=== PATIENT | female | born 1955 | race Caucasian/White ===

== ENCOUNTER 2016-11-01 08:31 | Day surgery (SDC) | payer BC ==
[~2016-11-01 08:31] MED LIST: CALCIUM PO; CEFT2 PO; DIL2TAB PO; ESTRACE VAG0.1 MG/GM V; FISH-EPA1000 MG PO; FLAXSEED OIL1000 MG PO; MAGNESIUM; Magnesium PO; NABUMETONE750 MG PO; ULTRAM50 PO; VIT D PO; VITAMIN B PO; VITAMIN D31000 UNIT PO; VITAMIN E
== END 2016-11-01 23:59 | disposition home health service (06) ==
LOC: DMU 08:31
PROVIDERS: Internal Medicine Gastroenterology
PROC: 4A1B88Z Monitoring of Gastrointestinal Motility, Via Natural or Artificial Opening Endoscopic (ICD-10-PCS; principal; 2016-11-01 09:00)
DX: R13.10 Dysphagia, unspecified (principal); Z91.040 Latex allergy status; Z88.8 Allergy status to other drugs, medicaments and biological substances
CPT/HCPCS: A9270-GY; C1894